=== PATIENT | female | born 1965 | race Two or more races ===

== ENCOUNTER 2018-06-14 09:34 | Emergency (ER) | payer OTHER ==
[~2018-06-14] VITALS: Ht 154.9 cm; Wt 59.9 kg
[2018-06-14] MEDS ORDERED: SYNTHROID88 MCG PO (09:46)
== END 2018-06-14 11:46 | disposition home or self-care (01) ==
LOC: ER 09:34
DX: S13.4XXA Sprain of ligaments of cervical spine, initial encounter (principal); V49.9XXA Car occupant (driver) (passenger) injured in unspecified traffic accident, initial encounter; Y93.89 Activity, other specified; Y92.488 Other paved roadways as the place of occurrence of the external cause; Y99.8 Other external cause status